=== PATIENT | female | born 1950 | race Caucasian/White ===

== ENCOUNTER 2023-06-04 09:41 | Outpatient (AMB) | payer OTHER, SELFPAY ==
--- NOTE | 2023-06-04 11:28 | AM.OFFWIN_ITS ---
Intake Vital Signs 06/04/23 11:30 BP 100/70 Blood Pressure Location Lt brachial Position Sitting Pulse 98 Pulse Source Pulse Oximeter Temp 98.1 F Temp Source Oral Pulse Oximetry (%) 96 Oxygen Delivery Method Room Air Intake Visit Reasons: EP Shingles DR. Jasmin winston ([facility]) Intake Note: Pt is here today c/o shingles on Rt side of face Allergies No Known Allergies Allergy (Verified 06/18/23 06:41) Medication List - Last Reconciled 06/18/23 by Erik José MD acetaminophen-codeine 300-30 mg 1 tab PO Q8H PRN amlodipine 10 mg PO DAILY atorvastatin 10 mg PO DAILY gabapentin (Neurontin) 300 mg PO TID latanoprost 0.005% 1 drp ophthalmic (eye) BEDTIME timolol maleate 0.5% drps ophthalmic (eye) valacyclovir 500 mg PO BID HPI EP Shingles DR. Jasmin winston ([facility]) HPI Details 73-year-old female presents to the office for a sick visit. Continues to have pain on the left side of her face. Lancinating pain which is unbearable at times. Tearing from the left eye. Physical Exam Vital Signs: Last Vital Signs Temp 98.1 F 06/04/23 11:30 Pulse 98 06/04/23 11:30 BP 100/70 06/04/23 11:30 Pulse Ox 96 06/04/23 11:30 Oxygen Delivery Method Room Air 06/04/23 11:30 Const General: cooperative and healthy appearing Nutritional Appearance: well nourished Orientation/consciousness: patient oriented x3 Limitations: no limitations HEENT Head: Yes normal to inspection Eyes General: appearance normal, both eyes and all related structures Neck Neck: Yes normal visual inspection Chest Chest palpation & inspection: normal palpation of entire chest wall Resp Effort & Inspection: normal respiratory effort Skin Other: No new herpetic lesions. Neuro General: patient oriented x3 Assessment & Plan Assessment & Plan (1) Herpes zoster: Code(s): B02.9 - Zoster without complications Plan: Unfortunately patient is having bad post herpetic neurology. Neurontin and Tylenol with codeine have been started. I have agreed to take or on as my primary care patient. She will be getting an appointment on in [place]. Medications: New acetaminophen-codeine 300-30 mg 1 tab PO Q8H PRN 30 tabs 0RF pain gabapentin (Neurontin) 300 mg PO TID 60 caps 0RF Discontinued gabapentin Discontinued Reason: Doctor's Order 100 mg PO BID 30 caps 0RF Coding Level of Care Code Est Pt Level 4 (10744) Diagnoses Herpes zoster B02.9
[2023-06-04 11:30] VITALS: BP 100/70; PULSE 98; TEMP 36.7; O2SAT 96
== END 2023-06-04 13:33 | disposition home or self-care (01) ==
PROVIDERS: Visit Provider Nurse Practitioner Family
DX: B02.9 Zoster without complications (principal)
CPT/HCPCS: 99214

== ENCOUNTER 2023-06-21 09:15 | Outpatient (AMB) | payer OTHER, SELFPAY ==
--- NOTE | 2023-06-21 09:29 | A.OFFPC_ITS ---
Vital Signs 06/21/23 09:32 Height 5 ft 1 in Weight 131 lb BMI 24.7 BP 120/68 Blood Pressure Location Lt brachial Position Sitting Pulse 74 Pulse Source Pulse Oximeter Pulse Oximetry (%) 97 Oxygen Delivery Method Room Air Intake Visit Reasons: Herpes on the lips f/u Intake Note: Patient is here to follow up on Herpes on the lips. Complaint of right face swelling and numbness. 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: Not Required per policy Accompanied by: Self / Same As Patient Allergies No Known Allergies Allergy (Verified 07/08/23 19:38) Medication List - Last Reconciled 07/08/23 by Erik José MD acetaminophen-codeine 300-30 mg 1 tab PO Q8H PRN amitriptyline 10 mg PO BEDTIME amlodipine 10 mg PO DAILY atorvastatin 10 mg PO DAILY gabapentin (Neurontin) 300 mg PO TID latanoprost 0.005% 1 drp ophthalmic (eye) BEDTIME timolol maleate 0.5% drps ophthalmic (eye) valacyclovir 500 mg PO BID Tobacco use date assessed: 06/21/23 Fall risk assessment: No Falls in past year Last assessed Fall Risk: 06/21/23 Dental Screening Dental Screen Date: 06/21/23 Did you have a dental visit in the last 12 months?: No Did you have a dental problem in the last 6 months where you did not have access to dental care?: No Was dental information given to patient?: No HPI Herpes on the lips f/u HPI Details 73 yr old female presents to the office to establish her care here. She was seen at the walk in with herpes zoster and she wanted to establish her care. Pt unfortunately has developed post herpetic neuralgia. Pt continues to have pain in the face. Difficulty sleeping at night. Medications prescribed are not helping. [facility] Surgical History (Updated 06/21/23 @ 09:45 by IRVIN Gomez) No pertinent past surgical history Social History (Updated 06/21/23 @ 09:46 by IRVIN Gomez) Housing: House Alcohol intake: current Alcohol intake frequency: a few times a month Alcohol type: wine Patient Tobacco Use Status: Never used Tobacco e-Cigarette/Vaping Use: Never Used Second Hand Smoke Exposure: No service: No Current occupational status: retired Cognitive needs: No Hearing needs: No Vision needs: Yes (glasses) Questionnaire PHQ-9 Over the last 2 weeks, how often have you been bothered by any of the following problems? 1. Little interest or pleasure in doing things: not at all 2. Feeling down, depressed, or hopeless: not at all 3. Trouble falling or staying asleep, or sleeping too much: not at all 4. Feeling tired or having little energy: not at all 5. Poor appetite or overeating: not at all 6. Feeling bad about yourself - or that you are a failure or have let yourself or your family down: not at all 7. Trouble concentrating on things, such as reading the newspaper or watching television: not at all 8. Moving or speaking so slowly that other people could have noticed. Or the opposite - being so fidgety or restless that you have been moving around a lot more than usual: not at all 9. Thoughts that you would be better off or of hurting yourself in some way: not at all Total score: 0 Depression Screening Interpretation: Negative Source: Developed by Drs. Eyal Parrish, Sydni Goodwin, Edmond Aguilar and colleagues, with an educational camila from [employer]. Thrive Questionnaire Date Thrive assessed: 06/21/23 I am a: Patient What is your living situation today?: I have a steady place to live Within the past 12 months, did the food you bought not last and you didn't have the money to get more?: Never true Within the past 12 months, did you worry whether your food would run out before you got money to buy more?: Never true Do you have trouble paying for medicines?: No Do you have trouble getting transportation to medical appointments?: No Do you have trouble paying your heating and electricity bill?: No Do you have trouble taking care of your child, family member or friend?: No Do you have trouble with day-to-day activities such as bathing, preparing meals, shopping, managing finances, etc.?: No Are you currently unemployed and looking for a job?: No Are you interested in more education?: No Currently or been in a relationship where the following occur: no concerns reported AUDIT C Alcohol Use Questionnaire (AUDIT-C) 1. How often do you have a drink containing alcohol?: Never Total Score: 0 CLINTON-7 AMB Questionnaire CLINTON-7 Date CLINTON - 7 assessed: 06/21/23 Feeling nervous, anxious, or on edge: 1 = Several days Not being able to stop or control worryin = Not at all Worrying too much about different things: 0 = Not at all Trouble relaxin = Not at all Being so restless that it is hard to sit still: 0 = Not at all Becoming easily annoyed or irritable: 0 = Not at all Feeling afraid as if something awful might happen: 0 = Not at all Total CLINTON-7 score (0-4 normal; 5-9 mild; 10-14 moderate; 15-21 severe): 1 Source: Developed by Drs. Eyal Parrish, Sydni Goodwin, Edmond Aguilar and colleagues, with an educational camila from [employer]. Physical exam (Primary Care) Vital Signs: Last Vital Signs Pulse 74 06/21/23 09:32 BP 120/68 06/21/23 09:32 Pulse Ox 97 06/21/23 09:32 Oxygen Delivery Method Room Air 06/21/23 09:32 BMI result Body Mass Index 24.7 Tobacco/Smoking Status: Tobacco use Status Tobacco use date assessed 06/21/23 06/21/23 09:47 Patient Tobacco Use Status Never used Tobacco 06/21/23 09:47 e-Cigarette/Vaping Use Never Used 06/21/23 09:47 PHQ-9: PHQ-9 Score PHQ-9: Total score 0 07/08/23 19:44 Depression Screening Interpretation: Negative Thrive Assessment: Date of Thrive Assessment Date Thrive assessed 06/21/23 06/21/23 09:47 Currently or been in a relationship where the following occur: no concerns reported Const General: cooperative, healthy appearing and comfortable HENMT Head: Yes normal to inspection and Yes atraumatic Eyes General: appearance normal, both eyes and all related structures Neck Neck: Yes normal visual inspection and Yes full ROM Chest Chest palpation & inspection: normal inspection of the chest Resp Effort & Inspection: normal respiratory effort Auscultation: clear to auscultation bilaterally Cardio Jugular venous distension: no JVD Palpation: normal PMI Rate: regular rate Heart sounds: S1 normal heart sound present and S2 normal heart sound present GI Palpation (GI): Soft to palpation and No hepatosplenomegaly present Skin Other: Face: Fading erythematous lesions on the left side of the face. Extrem General: Yes normal to inspection and Yes full ROM Assessment and Plan Assessment & Plan (1) Herpes zoster: Code(s): B02.9 - Zoster without complications Plan: Patient unfortunately has post herpetic neuralgia. Amitriptyline added to the regimen. Patient was advised to continue the Tylenol with codeine. Follow-up appointment in a month. Medications: New amitriptyline 10 mg PO BEDTIME 30 tabs 0RF Refilled acetaminophen-codeine 300-30 mg 1 tab PO Q8H PRN 30 tabs 0RF pain Coding Level of Care Code Est Pt Level 3 (54694) Diagnoses Herpes zoster B02.9
[2023-06-21 09:32] VITALS: BP 120/68; PULSE 74; O2SAT 97; BMI 24.7
== END 2023-06-21 10:20 | disposition home or self-care (01) ==
PROVIDERS: Visit Provider Internal Medicine
DX: B02.9 Zoster without complications (principal)
CPT/HCPCS: 99213

== ENCOUNTER 2023-09-20 07:44 | Outpatient (AMB) | payer OTHER, SELFPAY ==
[2023-09-20 07:48] VITALS: BP 118/72; PULSE 74; O2SAT 97; BMI 24.0
--- NOTE | 2023-09-20 07:48 | A.OFFPC_ITS ---
Vital Signs 09/20/23 07:48 Height 5 ft 1 in Weight 127 lb BMI 24.0 BP 118/72 Blood Pressure Location Lt brachial Position Sitting Pulse 74 Pulse Source Pulse Oximeter Pulse Oximetry (%) 97 Oxygen Delivery Method Room Air Intake Visit Reasons: Shingles f/u Allergies No Known Allergies Allergy (Verified 09/20/23 08:21) Medication List - Last Reconciled 09/20/23 by Erik José MD acetaminophen-codeine 300-30 mg 1 tab PO Q8H PRN amitriptyline 10 mg PO BEDTIME amlodipine 10 mg PO DAILY atorvastatin 10 mg PO DAILY gabapentin (Neurontin) 300 mg PO TID latanoprost 0.005% 1 drp ophthalmic (eye) BEDTIME timolol maleate 0.5% drps ophthalmic (eye) valacyclovir 500 mg PO BID Tobacco use date assessed: 06/21/23 Fall risk assessment: No Falls in past year Last assessed Fall Risk: 09/20/23 Dental Screening Dental Screen Date: 09/20/23 Did you have a dental visit in the last 12 months?: No Did you have a dental problem in the last 6 months where you did not have access to dental care?: No Was dental information given to patient?: No HPI Shingles f/u HPI Details 73-year-old female presents to the offic e for a discussion on her chronic medical conditions. Patient continues to have pain and numbness on the right side of the face. She has discontinued the amitriptyline. She is taking the Neurontin twice a day. The numbness is on the right side of the face extending into the nose. Able to chew with no difficulty. Occasional burning sensation. She has to cut the food into small pieces and push it to the left side to taste the food or enjoy the food. There is no drooling. Patient is also complaining increased sensitivity to cold. She is having hair loss. Able to function and do all activities of daily living. [facility] Medical History (Updated 09/20/23 @ 08:25 by Erik José MD) Post herpetic neuralgia Surgical History (Updated 06/21/23 @ 09:45 by IRVIN Gomez) No pertinent past surgical history Social History (Updated 06/21/23 @ 09:46 by IRVIN Gomez) Housing: House Alcohol intake: current Alcohol intake frequency: a few times a month Alcohol type: wine Patient Tobacco Use Status: Never used Tobacco e-Cigarette/Vaping Use: Never Used Second Hand Smoke Exposure: No service: No Current occupational status: retired Cognitive needs: No Hearing needs: No Vision needs: Yes (glasses) Questionnaire PHQ-9 Over the last 2 weeks, how often have you been bothered by any of the following problems? 1. Little interest or pleasure in doing things: not at all 2. Feeling down, depressed, or hopeless: not at all 3. Trouble falling or staying asleep, or sleeping too much: not at all 4. Feeling tired or having little energy: not at all 5. Poor appetite or overeating: not at all 6. Feeling bad about yourself - or that you are a failure or have let yourself or your family down: not at all 7. Trouble concentrating on things, such as reading the newspaper or watching television: not at all 8. Moving or speaking so slowly that other people could have noticed. Or the opposite - being so fidgety or restless that you have been moving around a lot more than usual: not at all 9. Thoughts that you would be better off or of hurting yourself in some wa y: not at all Total score: 0 Depression Screening Interpretation: Negative Depression Screening Done: Yes Source: Developed by Drs. Eyal Parrish, Edmond Lopez and colleagues, with an educational camila from [employer]. Thrive Questionnaire Date Thrive assessed: 06/21/23 Currently or been in a relationship where the following occur: no concerns reported AUDIT C Alcohol Use Questionnaire (AUDIT-C) 1. How often do you have a drink containing alcohol?: Never Total Score: 0 CLINTON-7 AMB Questionnaire CLINTON-7 Date CLINTON - 7 assessed: 06/21/23 Source: Developed by Drs. Eyal Parrish, Edmond Lopez and colleagues, with an educational camila from [employer]. Physical exam (Primary Care) Vital Signs: Last Vital Signs Pulse 74 09/20/23 07:48 BP 118/72 09/20/23 07:48 Pulse Ox 97 09/20/23 07:48 Oxygen Delivery Method Room Air 09/20/23 07:48 Care Plan Goal for BP management: Blood pressure is in range. BMI result Body Mass Index 24.0 Tobacco/Smoking Status: Tobacco use Status Tobacco use date assessed 06/21/23 09/20/23 07:53 Patient Tobacco Use Status Never used Tobacco 09/20/23 07:53 e-Cigarette/Vaping Use Never Used 09/20/23 07:53 PHQ-9: PHQ-9 Score PHQ-9: Total score 0 09/20/23 07:53 Depression Screening Interpretation: Negative Thrive Assessment: Date of Thrive Assessment Date Thrive assessed 06/21/23 09/20/23 07:53 Currently or been in a relationship where the following occur: no concerns reported Advance Care Planning discussion: Exists, not on file Date of discussion: 09/20/23 Who was present: Patient Forms completed: Health Care Proxy Time spent: 1-15 minutes, not on file Actual minutes spent: 5 Const General: cooperative and healthy appearing Nutritional Appearance: well nourished Orientation/consciousness: patient oriented x3 Limitations: no limitations HENMT Head: Yes normal to inspection Eyes General: appearance normal, both eyes and all related structures Neck Neck: Yes normal visual inspection Chest Chest palpation & inspection: normal palpation of entire chest wall Resp Effort & Inspection: normal respiratory effort Neuro General: patient oriented x3 Assessment and Plan Assessment & Plan (1) Herpes zoster: Code(s): B02.9 - Zoster without complications (2) Post herpetic neuralgia: Code(s): B02.29 - Other postherpetic nervous system involvement Plan: Unfortunately patient continues to have post herpetic neuralgia. Continue the gabapentin at current dosage. (3) Fatigue: Code(s): R53.83 - Other fatigue Plan Blood work including thyroid function tests have been ordered. If symptoms do not improve to follow-up here. Orders: Orders Basic Metabolic Panel Today B02.9 - Zoster without complications Complete Blood Count no Diff Today B02.9 - Zoster without complications Lipid Panel Today B02.9 - Zoster without complications Erythrocyte Sedimentation Rate Today B02.9 - Zoster without complications Thyroid Stimulating Hormone Today B02.9 - Zoster without complications Liver Panel Today B02.9 - Zoster without complications MM screening mammo BI Today B02.9 - Zoster without complications, Z12.31 - Encounter for screening mammogram for malignant neoplasm of breast Coding Level of Care Code Est Pt Level 4 (49925) Diagnoses Herpes zoster B02.9 Post herpetic neuralgia B02.29 Fatigue R53.83 Additional Codes Vital Signs *Quality* - Advance Care Planning discussion: Exists, not on file ([id number]) Vital Signs *Quality* - Time spent: 1-15 minutes, not on file ([id number])
== END 2023-09-20 08:52 | disposition home or self-care (01) ==
PROVIDERS: Visit Provider Internal Medicine
DX: B02.9 Zoster without complications (principal); B02.29 Other postherpetic nervous system involvement; R53.83 Other fatigue; Z00.00 Encounter for general adult medical examination without abnormal findings
CPT/HCPCS: 1123F; 1124F; 99214

== ENCOUNTER 2023-09-20 08:54 | Outpatient (REF) | payer OTHER, SELFPAY ==
[2023-09-20 11:01] LABS: Hematocrit 42.3 % (37.0-47.0); Hemoglobin 13.8 g/dl (12.0-16.0); Mean Corpuscular HGB Conc 32.6 g/dl (31.0-35.0); Mean Corpuscular Hemoglobin 29.5 pg (27.0-33.0); Mean Corpuscular Volume 90.4 fL (80.0-98.0); Platelet Count 380 X10*3/uL (160-400); Red Blood Count 4.68 X10*6/uL (4.20-5.50); Red Cell Distribution Width 13.5 % (11.0-16.0); White Blood Count 7.2 X10*3/uL (4.8-10.8)
[2023-09-20 11:17] LABS: Alanine Aminotransferase 10 U/L (0-31); Albumin Level 4.3 g/dL (3.5-5.0); Alkaline Phosphatase 85 U/L (39-117); Anion Gap 11 (12-20); Aspartate Amino Transferase 13 U/L (5-31); Bilirubin Direct 0.2 mg/dL (0.0-0.5); Bilirubin Total 0.5 mg/dL (0.0-1.0); Blood Urea Nitrogen 8 mg/dL (9-16); Calcium 9.6 mg/dL (8.4-10.2); Carbon Dioxide 31 mmol/L (22-29); Chloride 104 mmol/L (96-108); Cholesterol 186 mg/dL (<200); Estimated Glomerular Filt Rate > 60; Glucose Random 92 mg/dL (60-115); HDL Cholesterol 70 mg/dL (>40); LDL Cholesterol Calculated 94 mg/dL (<100); Potassium 3.4 mmol/L (3.3-5.1); Sodium 143 mmol/L (135-145); Total Protein 7.7 g/dL (6.5-8.0); Triglycerides 112 mg/dL (<150)
[2023-09-20 11:39] LABS: Erythrocyte Sedimentation Rate 10 MM/HR (0-20)
[2023-09-20 11:47] LABS: Thyroid Stimulating Hormone 2.01 uIU/mL (0.32-4.0)
== END 2023-09-20 08:55 | disposition home or self-care (01) ==
LOC: HO.10HDL 08:54
PROVIDERS: Visit Provider Internal Medicine
DX: B02.9 Zoster without complications (principal); E78.00 Pure hypercholesterolemia, unspecified; E03.9 Hypothyroidism, unspecified
CPT/HCPCS: 36415; 80048; 80061; 80076; 84443; 85027; 85652

== ENCOUNTER 2023-12-27 08:43 | Outpatient (AMB) | payer OTHER, SELFPAY ==
--- NOTE | 2023-12-27 08:54 | MHC.PC.OV ---
Vital Signs 12/27/23 08:57 Height 5 ft 1 in Weight 132 lb BMI 24.9 BP 130/80 Blood Pressure Location Lt brachial Position Sitting Pulse 72 Pulse Source Pulse Oximeter Pulse Oximetry (%) 95 Oxygen Delivery Method Room Air Intake Visit Reasons: 6mth f/u Intake Note: Patient is here to follow up on medical issues. 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: No Composing Room Machinist: Not Required per policy Accompanied by: Self / Same As Patient Allergies No Known Allergies Allergy (Verified 12/27/23 09:30) Medication List - Last Reconciled 12/27/23 by Erik José MD amlodipine 10 mg PO DAILY atorvastatin 10 mg PO DAILY gabapentin (Neurontin) 300 mg PO TID latanoprost 0.005% 1 drp ophthalmic (eye) BEDTIME timolol maleate 0.5% drps ophthalmic (eye) Tobacco use date assessed: 12/27/23 Fall risk assessment: No Falls in past year Last assessed Fall Risk: 12/27/23 Dental Screening Dental Screen Date: 12/27/23 Did you have a dental visit in the last 12 months?: No Did you have a dental problem in the last 6 months where you did not have access to dental care?: No Was dental information given to patient?: No HPI 6mth f/u HPI Details 73-year-old female presents to the office to discuss her chronic medical conditions. Patient continues to have post herpetic neuralgia. Symptoms are well controlled with gabapentin. However when she does not take the medicine she starts experiencing burning sensation, swelling near the nose. She has been taking the medicine for 7 months and is now frustrated that it has not improving. She is compliant with other medications including Lipitor and Norvasc. Patient is now ready to get a mammogram done. Able to function and do activities of daily living. Patient today wishes to discuss her panic attacks. She only gets them when she has in a passenger seat of a car or when she gets an a bus or train. This has developed in the past 10 years. Patient used to travel overseas and across borders, but now unable to do so due to this condition. She would taken Prozac for this condition for a year and there was no improvement. She would also seen a therapist with no improvement. [facility] Medical History (Updated 12/27/23 @ 09:34 by Erik José MD) Panic attacks Hypercholesterolemia Essential hypertension Post herpetic neuralgia Surgical History No pertinent past surgical history Social History Housing: House Alcohol intake: current Alcohol intake frequency: a few times a month Alcohol type: wine Patient Tobacco Use Status: Never used Tobacco e-Cigarette/Vaping Use: Never Used Second Hand Smoke Exposure: No service: No Current occupational status: retired Cognitive needs: No Hearing needs: No Vision needs: Yes (glasses) Questionnaire PHQ-9 Over the last 2 weeks, how often have you been bothered by any of the following problems? 1. Little interest or pleasure in doing things: not at all 2. Feeling down, depressed, or hopeless: not at all 3. Trouble falling or staying asleep, or sleeping too much: not at all 4. Feeling tired or having little energy: not at all 5. Poor appetite or overeating: not at all 6. Feeling bad about yourself - or that you are a failure or have let yourself or your family down: not at all 7. Trouble concentrating on things, such as reading the newspaper or watching television: not at all 8. Moving or speaking so slowly that other people could have noticed. Or the opposite - being so fidgety or restless that you have been moving around a lot more than usual: not at all 9. Thoughts that you would be better off or of hurting yourself in some way: not at all Total score: 0 Depression Screening Interpretation: Negative Depression Screening Done: Yes Source: Developed by Drs. Eyal Parrish, Sydni Goodwin, Edmond Aguilar and colleagues, with an educational camila from [employer]. Thrive Questionnaire Date Thrive assessed: 12/27/23 I am a: Patient What is your living situation today?: I have a steady place to live Within the past 12 months, did the food you bought not last and you didn't have the money to get more?: Never true Within the past 12 months, did you worry whether your food would run out before you got money to buy more?: Never true Do you have trouble paying for medicines?: No Do you have trouble getting transportation to medical appointments?: No Do you have trouble paying your heating and electricity bill?: No Do you have trouble taking care of your child, family member or friend?: No Do you have trouble with day-to-day activities such as bathing, preparing meals, shopping, managing finances, etc.?: No Are you currently unemployed and looking for a job?: No Are you interested in more education?: No Currently or been in a relationship where the following occur: no concerns reported THRIVE Score: 0 AUDIT C Alcohol Use Questionnaire (AUDIT-C) 1. How often do you have a drink containing alcohol?: 2-4 times a month Total Score: 2 CLINTON-7 AMB Questionnaire CLINTON-7 Date CLINTON - 7 assessed: 06/21/23 Feeling nervous, anxious, or on edge: 0 = Not at all Not being able to stop or control worryin = Not at all Worrying too much about different things: 0 = Not at all Trouble relaxin = Not at all Being so restless that it is hard to sit still: 0 = Not at all Becoming easily annoyed or irritable: 0 = Not at all Feeling afraid as if something awful might happen: 0 = Not at all Total CLINTON-7 score (0-4 normal; 5-9 mild; 10-14 moderate; 15-21 severe): 0 Source: Developed by Drs. Eyal Parrish, Sydni Goodwin, Edmond Aguilar and colleagues, with an educational camila from [employer]. Physical exam (Primary Care) Vital Signs: Last Vital Signs Pulse 72 12/27/23 08:57 BP 130/80 12/27/23 08:57 Pulse Ox 95 12/27/23 08:57 Oxygen Delivery Method Room Air 12/27/23 08:57 Care Plan Goal for BP management: Blood pressure is in range. Continue current medications. BMI result Body Mass Index 24.9 Tobacco/Smoking Status: Tobacco use Status Tobacco use date assessed 12/27/23 12/27/23 09:06 Patient Tobacco Use Status Never used Tobacco 12/27/23 09:06 e-Cigarette/Vaping Use Never Used 12/27/23 09:06 PHQ-9: PHQ-9 Score PHQ-9: Total score 0 12/27/23 09:06 Depression Screening Interpretation: Negative Thrive Assessment: Date of Thrive Assessment Date Thrive assessed 12/27/23 12/27/23 09:06 Currently or been in a relationship where the following occur: no concerns reported Advance Care Planning discussion: Exists, not on file Date of discussion: 12/27/23 Who was present: Patient Forms completed: Health Care Proxy Time spent: 1-15 minutes, not on file Actual minutes spent: 5 Const General: cooperative and healthy appearing Nutritional Appearance: well nourished Orientation/consciousness: patient oriented x3 Limitations: no limitations HENMT Head: Yes normal to inspection Eyes General: appearance normal, both eyes and all related structures Neck Neck: Yes normal visual inspection Chest Chest palpation & inspection: normal palpation of entire chest wall Resp Effort & Inspection: normal respiratory effort Neuro General: patient oriented x3 Assessment and Plan Assessment & Plan (1) Hypercholesterolemia: Code(s): E78.00 - Pure hypercholesterolemia, unspecified Plan: LDL is in range. Continue Lipitor at same dosage. (2) Essential hypertension: Code(s): I10 - Essential (primary) hypertension Plan: Blood pressure is in range. Continue medications at same dosage. (3) Post herpetic neuralgia: Code(s): B02.29 - Other postherpetic nervous system involvement Plan: Condition is frustrating the patient. However she gets very good relief in Neurontin. I advised her to continue the medication indefinitely for now. (4) Panic attacks: Code(s): F41.0 - Panic disorder [episodic paroxysmal anxiety] Plan: 15 minutes spent counseling the patient. She continues to decline therapy. I gave her a few suggestions on how to overcome her fear and panic. Coding Level of Care Code Est Pt Level 4 (87696) Diagnoses Hypercholesterolemia E78.00 Essential hypertension I10 Post herpetic neuralgia B02.29 Panic attacks F41.0 Additional Codes Vital Signs *Quality* - Advance Care Planning discussion: Exists, not on file ([id number]) Vital Signs *Quality* - Time spent: 1-15 minutes, not on file ([id number])
[2023-12-27 08:57] VITALS: BP 130/80; PULSE 72; O2SAT 95; BMI 24.9
== END 2023-12-27 09:30 | disposition home or self-care (01) ==
PROVIDERS: PCP Internal Medicine; Visit Provider Internal Medicine
DX: E78.00 Pure hypercholesterolemia, unspecified (principal); I10 Essential (primary) hypertension; B02.29 Other postherpetic nervous system involvement; F41.0 Panic disorder [episodic paroxysmal anxiety]; Z00.00 Encounter for general adult medical examination without abnormal findings
CPT/HCPCS: 1123F; 1124F; 99214

== ENCOUNTER 2024-01-31 08:47 | Outpatient (REF) | payer OTHER, SELFPAY ==
--- NOTE | ~2024-01-31 | MM_ITS ---
EXAMINATION: MM SCREENING DIGITAL BREAST TOMOSYNTHESIS, BILATERAL CLINICAL INFORMATION: Screening. Asymptomatic. The patient is status post bilateral breast reduction. COMPARISON: Mammography: This study is compared with prior exams dating back to 2019. TECHNIQUE: Digital breast tomosynthesis is performed in both the craniocaudal and mediolateral oblique views along with computer-aided detection (CAD). Synthesized 2D images are generated from the tomosynthesis. FINDINGS: There are scattered areas of fibroglandular density (ACR BI-RADS breast composition Category b). There is an asymmetry in the superior aspect of the left breast. This may be related to prior breast reduction however, additional mammographic imaging of this finding is advised. In the right breast, there are no significant masses, abnormal calcifications, or other abnormalities. There are post reduction changes in each breast. There is a tissue marker present in the upper outer quadrant of the right breast from prior benign percutaneous biopsy. There are few, bilateral, benign calcifications. MM/MM tomosynthesis screening BI IMPRESSION: Asymmetry of the left breast warrants additional mammographic imaging. Bilateral post reduction and other benign findings. ASSESSMENT: BI-RADS BI-RADS 0 - Incomplete: Needs additional Imaging. RECOMMENDATION: 1. Additional views of the left breast 2. Targeted ultrasound if warranted after review of the additional views. 3. Radiology department staff will contact the patient for additional imaging. Additional Imaging required This examination should not preclude the clinical evaluation of a suspicious palpable abnormality. This patient's information was entered into a reminder system with a target due date for their next mammogram.
== END 2024-01-31 08:48 | disposition home or self-care (01) ==
LOC: HO.MAMMO 08:47
PROVIDERS: PCP Internal Medicine; Visit Provider Internal Medicine
DX: Z12.31 Encounter for screening mammogram for malignant neoplasm of breast (principal)
CPT/HCPCS: 77063; 77067

== ENCOUNTER → 2024-01-31 09:15 | Outpatient (BNV) | payer OTHER, SELFPAY | PROVIDERS: PCP Internal Medicine; Visit Provider Radiology Diagnostic Radiology | DX: Z12.31 Encounter for screening mammogram for malignant neoplasm of breast (principal) | CPT/HCPCS: 77063; 77067 ==

== ENCOUNTER 2024-03-28 10:38 | Outpatient (REF) | payer OTHER, SELFPAY ==
--- NOTE | ~2024-03-28 | MM_ITS ---
EXAMINATION: MM DIAGNOSTIC DIGITAL BREAST TOMOSYNTHESIS, LEFT CLINICAL INFORMATION: Patient presents for additional mammographic imaging of the superiorly located left breast asymmetry noted on screening mammography from 01/31/2024. The patient has a history of bilateral breast reduction. COMPARISON: Mammography: This study is compared with prior breast imaging dating back to 2019. TECHNIQUE: Digital breast tomosynthesis is performed. 2D images are generated from the tomosynthesis. The following views are obtained: CC, MLO and lateral spot compression of the left breast and a full lateral view of the left breast are obtained. FINDINGS: There are scattered areas of fibroglandular density (ACR BI-RADS breast composition Category b). Additional mammographic imaging of the superior aspect of the left breast reveals no persistent underlying abnormality. There are postsurgical changes related to prior breast reduction. There are no mammographic signs of malignancy. MM/MM tomosynthesis added views L IMPRESSION: No mammographic signs of malignancy. Both reduction changes left breast. ASSESSMENT: BI-RADS BI-RADS 2 - Benign Findings RECOMMENDATION: 1 year F/U Results were provided to the patient at time of visit by the technologist. This patient's information was entered into a reminder system with a target due date for their next mammogram.
== END 2024-03-28 10:39 | disposition home or self-care (01) ==
LOC: HO.MAMMO 10:38
PROVIDERS: PCP Internal Medicine; Visit Provider Internal Medicine
DX: N64.89 Other specified disorders of breast (principal)
CPT/HCPCS: 77061; 77065

== ENCOUNTER → 2024-03-28 11:00 | Outpatient (BNV) | payer OTHER, SELFPAY | PROVIDERS: PCP Internal Medicine; Visit Provider Radiology Diagnostic Radiology | DX: R92.8 Other abnormal and inconclusive findings on diagnostic imaging of breast (principal) | CPT/HCPCS: 77061; 77065; G0279 ==

== ENCOUNTER 2024-06-26 08:49 | Outpatient (AMB) | payer OTHER, SELFPAY ==
[2024-06-26 08:56] VITALS: BP 116/74; PULSE 76; O2SAT 98; BMI 25.5
--- NOTE | 2024-06-26 08:56 | MHC.PC.OV ---
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: No Allergies No Known Allergies Allergy (Verified 06/26/24 09:41) Medication List - Last Reconciled 06/26/24 by Erik José MD amlodipine 10 mg PO DAILY atorvastatin 10 mg PO DAILY gabapentin (Neurontin) 300 mg PO TID latanoprost 0.005% 1 drp ophthalmic (eye) BEDTIME timolol maleate 0.5% drps ophthalmic (eye) Tobacco use date assessed: 12/27/23 Fall risk assessment: No Falls in past year Last assessed Fall Risk: 06/26/24 Dental Screening Dental Screen Date: 12/27/23 Did you have a dental visit in the last 12 months?: No Did you have a dental problem in the last 6 months where you did not have access to dental care?: No HPI 6mth f/u HPI Details 74-year-old female presents to the office to discuss her chronic medical conditions. Patient continues to have discomfort and altered touch sensation on the right side of the face. It has been more than a year since she suffered from herpes zoster in that area. Patient continues to take Neurontin. She is able to do all activities of daily living and able to function. Compliant with other medications 2. [facility] Medical History (Updated 12/27/23 @ 09:34 by Erik José MD) Panic attacks Hypercholesterolemia Essential hypertension Post herpetic neuralgia Surgical History No pertinent past surgical history Social History Housing: House Alcohol intake: current Alcohol intake frequency: a few times a month Alcohol type: wine Patient Tobacco Use Status: Never used Tobacco e-Cigarette/Vaping Use: Never Used Second Hand Smoke Exposure: No service: No Current occupational status: retired Cognitive needs: No Hearing needs: No Vision needs: Yes (glasses) Questionnaire PHQ-9 Over the last 2 weeks, how often have you been bothered by any of the following problems? 1. Little interest or pleasure in doing things: not at all 2. Feeling down, depressed, or hopeless: not at all 3. Trouble falling or staying asleep, or sleeping too much: not at all 4. Feeling tired or having little energy: not at all 5. Poor appetite or overeating: not at all 6. Feeling bad about yourself - or that you are a failure or have let yourself or your family down: not at all 7. Trouble concentrating on things, such as reading the newspaper or watching television: not at all 8. Moving or speaking so slowly that other people could have noticed. Or the opposite - being so fidgety or restless that you have been moving around a lot more than usual: not at all 9. Thoughts that you would be better off or of hurting yourself in some way: not at all Total score: 0 Depression Screening Interpretation: Negative Depression Screening Done: Yes 95041 - PHQ-9 Billing: Yes Source: Developed by Drs. Eyal Parrish, Sydni Goodwin, Edmond Aguilar and colleagues, with an educational camila from [employer]. Thrive Questionnaire Date Thrive assessed: 12/27/23 I am a: Patient What is your living situation today?: I have a steady place to live Within the past 12 months, did the food you bought not last and you didn't have the money to get more?: Never true Within the past 12 months, did you worry whether your food would run out before you got money to buy more?: Never true Do you have trouble paying for medicines?: No Do you have trouble getting transportation to medical appointments?: No Do you have trouble paying your heating and electricity bill?: No Do you have trouble taking care of your child, family member or friend?: No Do you have trouble with day-to-day activities such as bathing, preparing meals, shopping, managing finances, etc.?: No Are you currently unemployed and looking for a job?: No Are you interested in more education?: No Please select the resources that you would like help with: None Currently or been in a relationship where the following occur: No concerns reported THRIVE Score: 0 AUDIT C Alcohol Use Questionnaire (AUDIT-C) 1. How often do you have a drink containing alcohol?: 2-4 times a month 3. How often do you have six or more drinks on one occasion?: Never Total Score: 2 CLINTON-7 AMB Questionnaire CLINTON-7 Date CLINTON - 7 assessed: 06/26/24 Feeling nervous, anxious, or on edge: 0 = Not at all Not being able to stop or control worryin = Not at all Worrying too much about different things: 0 = Not at all Trouble relaxin = Not at all Being so restless that it is hard to sit still: 0 = Not at all Becoming easily annoyed or irritable: 0 = Not at all Feeling afraid as if something awful might happen: 0 = Not at all Total CLINTON-7 score (0-4 normal; 5-9 mild; 10-14 moderate; 15-21 severe): 0 Source: Developed by Drs. Eyal Parrish, Sydni Goodwin, Edmond Aguilar and colleagues, with an educational camila from [employer]. CLINTON-7 Assessment Billing CLINTON-7 Assessment Tool: CLINTON-7 Assessment 87875 Physical exam (Primary Care) Vital Signs: Last Vital Signs Pulse 76 06/26/24 08:56 BP 116/74 06/26/24 08:56 Pulse Ox 98 06/26/24 08:56 Oxygen Delivery Method Room Air 06/26/24 08:56 Care Plan Goal for BP management: Blood pressure is in range. Continue current medications. BMI result Body Mass Index 25.5 Tobacco/Smoking Status: Tobacco use Status Tobacco use date assessed 12/27/23 06/26/24 09:04 Patient Tobacco Use Status Never used Tobacco 06/26/24 09:04 e-Cigarette/Vaping Use Never Used 06/26/24 09:04 PHQ-9: PHQ-9 Score PHQ-9: Total score 0 06/26/24 09:04 Depression Screening Interpretation: Negative Thrive Assessment: Date of Thrive Assessment Date Thrive assessed 12/27/23 06/26/24 09:04 Currently or been in a relationship where the following occur: No concerns reported Const General: cooperative and healthy appearing Nutritional Appearance: well nourished Orientation/consciousness: patient oriented x3 Limitations: no limitations HENMT Head: Yes normal to inspection Eyes General: appearance normal, both eyes and all related structures Neck Neck: Yes normal visual inspection Chest Chest palpation & inspection: normal palpation of entire chest wall Resp Effort & Inspection: normal respiratory effort Neuro General: patient oriented x3 Assessment and Plan Assessment & Plan (1) Essential hypertension: Code(s): I10 - Essential (primary) hypertension Plan: Blood pressure is in range. Continue medications at same dosage. Counseling on the importance of diet and exercise done. Blood work has been ordered. Will call with the results of the blood test. (2) Post herpetic neuralgia: Code(s): B02.29 - Other postherpetic nervous system involvement Plan: Patient's quality of life is good. Continue Neurontin at the same dosage. (3) Hypercholesterolemia: Code(s): E78.00 - Pure hypercholesterolemia, unspecified Orders: Orders Complete Blood Count no Diff Today B02.29 - Other postherpetic nervous system involvement, E78.00 - Pure hypercholesterolemia, unspecified, I10 - Essential (primary) hypertension Erythrocyte Sedimentation Rate Today B02.29 - Other postherpetic nervous system involvement, E78.00 - Pure hypercholesterolemia, unspecified, I10 - Essential (primary) hypertension Lipid Panel Today B02.29 - Other postherpetic nervous system involvement, E78.00 - Pure hypercholesterolemia, unspecified, I10 - Essential (primary) hypertension Basic Metabolic Panel Today B02.29 - Other postherpetic nervous system involvement, E78.00 - Pure hypercholesterolemia, unspecified, I10 - Essential (primary) hypertension Liver Panel Today B02.29 - Other postherpetic nervous system involvement, E78.00 - Pure hypercholesterolemia, unspecified, I10 - Essential (primary) hypertension Thyroid Stimulating Hormone Today B02.29 - Other postherpetic nervous system involvement, E78.00 - Pure hypercholesterolemia, unspecified, I10 - Essential (primary) hypertension UA and rflx microscopic Today B02.29 - Other postherpetic nervous system involvement, E78.00 - Pure hypercholesterolemia, unspecified, I10 - Essential (primary) hypertension Coding Level of Care Code Est Pt Level 4 (39794) Complex EM visit Add On G2211 Diagnoses Essential hypertension I10 Post herpetic neuralgia B02.29 Hypercholesterolemia E78.00 Additional Codes CLINTON-7 Assessment Billing - CLINTON-7 Assessment Tool: CLINTON-7 Assessment 75070 ([id number])
== END 2024-06-26 09:37 | disposition home or self-care (01) ==
PROVIDERS: PCP Internal Medicine; Visit Provider Internal Medicine
DX: I10 Essential (primary) hypertension (principal); B02.29 Other postherpetic nervous system involvement; E78.00 Pure hypercholesterolemia, unspecified
CPT/HCPCS: 99214; G2211

== ENCOUNTER 2024-09-26 07:56 | Outpatient (REF) | payer OTHER, SELFPAY ==
[2024-09-26 10:09] LABS: Hematocrit 41.7 % (37.0-47.0); Hemoglobin 13.6 g/dl (12.0-16.0); Mean Corpuscular HGB Conc 32.6 g/dl (31.0-35.0); Mean Corpuscular Hemoglobin 29.3 pg (27.0-33.0); Mean Corpuscular Volume 89.9 fL (80.0-98.0); Mean Platelet Volume 9.1 fL (9.4-12.3); Platelet Count 409 X10*3/uL (160-400); Red Blood Count 4.64 X10*6/uL (4.20-5.50); Red Cell Distribution Width 14.1 % (11.0-16.0); White Blood Count 5.6 X10*3/uL (4.8-10.8)
[2024-09-26 10:15] LABS: Appearance Urine Clear; Color Urine Yellow; Glucose Urine UA Negative (Negative); Leukocyte Esterase Urine Trace (Negative); Nitrite Urine Negative (Negative); PH 6.5 (5.0-9.0); Specific Gravity - Urine 1.015 (1.005-1.025); UMIC TRIGGER UA YES; Urine Blood Negative (Negative); Urine Ketones Negative (Negative); Urine Protein Negative (Neg-Trace)
[2024-09-26 10:22] LABS: Bacteria Urine None Seen (None Seen); Hyaline Casts Urine 0-2 /LPF (0-2); RBC Urine 0-2 /HPF (0-2); Squamous Epithelial Cell Urine 0-2 /HPF (0-2); WBC Urine 0-5 /HPF (0-5)
[2024-09-26 10:53] LABS: Erythrocyte Sedimentation Rate 12 MM/HR (0-20)
[2024-09-26 10:56] LABS: Alanine Aminotransferase 12 U/L (0-31); Albumin Level 4.1 g/dL (3.5-5.0); Alkaline Phosphatase 91 U/L (39-117); Anion Gap 8 (12-20); Aspartate Amino Transferase 18 U/L (5-31); Bilirubin Direct 0.3 mg/dL (0.0-0.5); Bilirubin Total 0.8 mg/dL (0.0-1.0); Blood Urea Nitrogen 8 mg/dL (9-16); Calcium 9.1 mg/dL (8.4-10.2); Carbon Dioxide 30 mmol/L (22-29); Chloride 104 mmol/L (96-108); Cholesterol 173 mg/dL (<200); Estimated Glomerular Filt Rate > 60; Glucose Random 103 mg/dL (60-115); HDL Cholesterol 66 mg/dL (>40); LDL Cholesterol Calculated 89 mg/dL (<100); Potassium 3.4 mmol/L (3.3-5.1); Sodium 139 mmol/L (135-145); Thyroid Stimulating Hormone 2.32 uIU/mL (0.32-4.0); Total Protein 7.4 g/dL (6.5-8.0); Triglycerides 91 mg/dL (<150)
== END 2024-09-26 07:57 | disposition home or self-care (01) ==
LOC: HO.HMGCLDS 07:56
PROVIDERS: PCP Internal Medicine; Visit Provider Internal Medicine
DX: I10 Essential (primary) hypertension (principal); B02.29 Other postherpetic nervous system involvement; E78.00 Pure hypercholesterolemia, unspecified
CPT/HCPCS: 36415; 80048; 80061; 80076; 81001; 84443; 85027; 85652

== ENCOUNTER 2025-01-15 08:00 | Outpatient (AMB) | payer OTHER, SELFPAY ==
--- NOTE | 2025-01-15 08:12 | MHC.PC.OV ---
Vital Signs 01/15/25 08:14 Height 5 ft 1 in Weight 133 lb BMI 25.1 BP 120/72 Blood Pressure Location Lt brachial Position Sitting Pulse 71 Pulse Source Pulse Oximeter Temp 97.5 F Temp Source Temporal Artery Scan Pulse Oximetry (%) 97 Oxygen Delivery Method Room Air Intake Visit Reasons: 6mth f/u Intake Note: Patient is here to follow up on HTN, Hypercholesterolemia. Student Specialist Required: No Rehab Department Manager: Not Required per policy Accompanied by: Self / Same As Patient Allergies No Known Allergies Allergy (Verified 01/15/25 08:45) Medication List - Last Reconciled 01/15/25 by Erik José MD amlodipine 10 mg PO DAILY atorvastatin 10 mg PO DAILY gabapentin (Neurontin) 300 mg PO TID latanoprost 0.005% 1 drp ophthalmic (eye) BEDTIME timolol maleate 0.5% drps ophthalmic (eye) Tobacco use date assessed: 01/15/25 Fall risk assessment: No Falls in past year Last assessed Fall Risk: 01/15/25 Dental Screening Dental Screen Date: 01/15/25 Did you have a dental visit in the last 12 months?: Yes Did you have a dental problem in the last 6 months where you did not have access to dental care?: No Was dental information given to patient?: Patient has dentist [facility] Medical History Panic attacks Hypercholesterolemia Essential hypertension Post herpetic neuralgia Surgical History History of colonoscopy with polypectomy (11/25/24) No pertinent past surgical history Social History Housing: House Alcohol intake: current Alcohol intake frequency: a few times a month Alcohol type: wine Patient Tobacco Use Status: Never used Tobacco e-Cigarette/Vaping Use: Never Used Second Hand Smoke Exposure: No service: No Current occupational status: retired Cognitive needs: No Hearing needs: No Vision needs: Yes (glasses) Questionnaire PHQ-9 Over the last 2 weeks, how often have you been bothered by any of the following problems? 1. Little interest or pleasure in doing things: not at all 2. Feeling down, depressed, or hopeless: not at all 3. Trouble falling or staying asleep, or sleeping too much: not at all 4. Feeling tired or having little energy: not at all 5. Poor appetite or overeating: not at all 6. Feeling bad about yourself - or that you are a failure or have let yourself or your family down: not at all 7. Trouble concentrating on things, such as reading the newspaper or watching television: not at all 8. Moving or speaking so slowly that other people could have noticed. Or the opposite - being so fidgety or restless that you have been moving around a lot more than usual: not at all 9. Thoughts that you would be better off or of hurting yourself in some way: not at all Total score: 0 Depression Screening Interpretation: Negative Depression Screening Done: Yes Source: Developed by Drs. Eyal Parrish, Sydni Goodwin, Edmond Aguilar and colleagues, with an educational camila from [employer]. Thrive Questionnaire Date Thrive assessed: 01/15/25 I am a: Patient What is your living situation today?: I have a steady place to live Within the past 12 months, did the food you bought not last and you didn't have the money to get more?: Never true Within the past 12 months, did you worry whether your food would run out before you got money to buy more?: Never true Do you have trouble paying for medicines?: No Do you have trouble getting transportation to medical appointments?: No Do you have trouble paying your heating and electricity bill?: No Do you have trouble taking care of your child, family member or friend?: No Do you have trouble with day-to-day activities such as bathing, preparing meals, shopping, managing finances, etc.?: No Are you currently unemployed and looking for a job?: No Are you interested in more education?: No Please select the resources that you would like help with: None Currently or been in a relationship where the following occur: No concerns reported THRIVE Score: 0 AUDIT C Alcohol Use Questionnaire (AUDIT-C) 1. How often do you have a drink containing alcohol?: 2-4 times a month 2. How many drinks containing alcohol do you have on a typical day when you are drinking?: 1 or 2 Total Score: 2 CLINTON-7 AMB Questionnaire CLINTON-7 Date CLINTON - 7 assessed: 01/15/25 Feeling nervous, anxious, or on edge: 0 = Not at all Not being able to stop or control worryin = Not at all Worrying too much about different things: 0 = Not at all Trouble relaxin = Not at all Being so restless that it is hard to sit still: 0 = Not at all Becoming easily annoyed or irritable: 0 = Not at all Feeling afraid as if something awful might happen: 0 = Not at all Total CLINTON-7 score (0-4 normal; 5-9 mild; 10-14 moderate; 15-21 severe): 0 Source: Developed by Drs. Eyal Parrish, Sydni Goodwin, Edmond Aguilar and colleagues, with an educational camila from [employer]. Physical exam (Primary Care) Vital Signs: Last Vital Signs Temp 97.5 F 01/15/25 08:14 Pulse 71 01/15/25 08:14 BP 120/72 01/15/25 08:14 Pulse Ox 97 01/15/25 08:14 Oxygen Delivery Method Room Air 01/15/25 08:14 BMI result Body Mass Index 25.1 Tobacco/Smoking Status: Tobacco use Status Tobacco use date assessed 01/15/25 01/15/25 08:18 Patient Tobacco Use Status Never used Tobacco 01/15/25 08:18 e-Cigarette/Vaping Use Never Used 01/15/25 08:18 PHQ-9: PHQ-9 Score PHQ-9: Total score 0 01/15/25 08:18 Depression Screening Interpretation: Negative Thrive Assessment: Date of Thrive Assessment Date Thrive assessed 01/15/25 01/15/25 08:18 Currently or been in a relationship where the following occur: No concerns reported Coding Level of Care Code Est Pt Level 4 (16719) Complex EM visit Add On G2211 Diagnoses Panic attacks F41.0 Essential hypertension I10 Hypercholesterolemia E78.00 Post herpetic neuralgia B02.29 Assessment & Plan Assessment & Plan (1) Panic attacks: Code(s): F41.0 - Panic disorder [episodic paroxysmal anxiety] Category: Medical Plan: Currently condition is stable (2) Essential hypertension: Code(s): I10 - Essential (primary) hypertension Category: Medical Plan: BP in range. Continue meds at same dosage. BW done in September is in range. (3) Hypercholesterolemia: Code(s): E78.00 - Pure hypercholesterolemia, unspecified Category: Medical Plan: BW in range (4) Post herpetic neuralgia: Code(s): B02.29 - Other postherpetic nervous system involvement Category: Medical Plan: Continue Neurontin Plan History of Present Illness The patient is a 74-year-old female presenting with concerns regarding Postherpetic Neuralgia and the ongoing management of Hypertension. She experiences persistent face numbness with occasional pain localized to her lips and nose, having used gabapentin in response to symptoms persisting. Additional potential treatments, such as duloxetine, were discussed with recognition of side effects.? Unknown to me, patient was taking Amlodipine 10 mg and Lipitor 10 mg a day for HTN and Elevated Cholesterol. Social History - The patient lives in [place], [place]. - She was assigned a new primary care provider after the departure of her previous physician but did not see them. - She expresses support for her friend undergoing chemotherapy and plans social activities accordingly. Review of Systems Neurological: Reports persistent facial numbness and pain in the lip and nose area. Vaccination: Denies receipt of shingles vaccine. Physical Exam General: Appearance normal, both eyes and all related structures Nutritional Appearance: Well nourished Orientation/consciousness: Patient oriented x3 Limitations: No limitations Head: Normal to inspection Neck: Normal visual inspection Chest: Normal palpation of entire chest wall Respiratory: Normal respiratory effort Neurology: Patient oriented x3, reports numbness and occasional pain in the face, affecting the lip and nose. Results - Labs: September blood work, results unspecified but noted as normal. Plan The management of Postherpetic Neuralgia emphasizes gabapentin, with discussed alternatives like duloxetine, though it was deemed unsuitable at present due to side effects. The patient will coordinate Hypertension medication refills through my office to enhance oversight. The vaccination status was reviewed, with the patient expressing hesitation about receiving the shingles vaccine. Laboratory assessments were previously normal, thus recent tests are deemed unnecessary. Patient was informed and verbally consented to the use of an ambient scribe for clinic note documentation during this visit. Discussion Notes I discussed with the patient her continued symptoms of Postherpetic Neuralgia; we explored treatment options, particularly emphasizing current gabapentin use to alleviate symptoms despite persistence and its impacts. Duloxetine was noted but sidelined due to significant side effects. We talked about her Hypertension, transitioning her Norvast prescription to be managed by my practice to prevent automatic refills unnoticed. I acknowledged her concerns about vaccine rigor influencing her decision against receiving the shingles vaccine, explaining potential benefits. The patient will follow up in six months in the [place] office or earlier if needed for prescription adjustments. Patient Instructions - Continue taking gabapentin as prescribed for Postherpetic Neuralgia. - Contact the office for prescription refills to avoid automated renewals. - Monitor symptoms; report any significant changes or concerning issues. - Consider health wellness reviews and vaccination discussions as knowledgeable options. - Keep appointments for scheduled follow-ups for condition monitoring.
[2025-01-15 08:14] VITALS: BP 120/72; PULSE 71; TEMP 36.4; O2SAT 97; BMI 25.1
== END 2025-01-15 09:56 | disposition home or self-care (01) ==
PROVIDERS: PCP Internal Medicine; Visit Provider Internal Medicine
DX: F41.0 Panic disorder [episodic paroxysmal anxiety] (principal); I10 Essential (primary) hypertension; E78.00 Pure hypercholesterolemia, unspecified; B02.29 Other postherpetic nervous system involvement

== ENCOUNTER 2025-09-07 15:29 | Outpatient (AMB) | payer OTHER, SELFPAY ==
[2025-09-07 15:38] VITALS: BP 122/80; PULSE 90; RESP 14; TEMP 36.4; O2SAT 95; BMI 25.1
--- NOTE | 2025-09-07 15:38 | A.OFFPC_ITS ---
Vital Signs 09/07/25 15:38 Height 5 ft 1 in Weight 133 lb BMI 25.1 BP 122/80 Respiration 14 Pulse 90 Pulse Source Pulse Oximeter Temp 97.6 F Temp Source Temporal Artery Scan Pulse Oximetry (%) 95 Oxygen Delivery Method Room Air Intake Visit Reasons: Follow up Technical Services Coordinator Required: No Accompanied by: Self / Same As Patient Allergies No Known Allergies Allergy (Verified 09/07/25 15:39) Tobacco use date assessed: 01/15/25 Dental Screening Dental Screen Date: 01/15/25 [facility] Medical History Panic attacks Hypercholesterolemia Essential hypertension Post herpetic neuralgia Surgical History History of colonoscopy with polypectomy (11/25/24) No pertinent past surgical history Social History Housing: House Alcohol intake: current Alcohol intake frequency: a few times a month Alcohol type: wine Patient Tobacco Use Status: Never used Tobacco e-Cigarette/Vaping Use: Never Used Second Hand Smoke Exposure: No service: No Current occupational status: retired Cognitive needs: No Hearing needs: No Vision needs: Yes (glasses) Questionnaire PHQ-9 Over the last 2 weeks, how often have you been bothered by any of the following problems? 1. Little interest or pleasure in doing things: not at all 2. Feeling down, depressed, or hopeless: not at all 3. Trouble falling or staying asleep, or sleeping too much: not at all 4. Feeling tired or having little energy: not at all 5. Poor appetite or overeating: not at all 6. Feeling bad about yourself - or that you are a failure or have let yourself or your family down: not at all 7. Trouble concentrating on things, such as reading the newspaper or watching television: not at all 8. Moving or speaking so slowly that other people could have noticed. Or the opposite - being so fidgety or restless that you have been moving around a lot more than usual: not at all 9. Thoughts that you would be better off or of hurting yourself in some way: not at all Total score: 0 Depression Screening Interpretation: Negative Depression Screening Done: Yes Source: Developed by Drs. Eyal Parrish, Sydni Goodwin, Edmond Aguilar and colleagues, with an educational camila from [employer]. Thrive Questionnaire Date Thrive assessed: 01/15/25 I am a: Patient What is your living situation today?: I have a steady place to live Within the past 12 months, did the food you bought not last and you didn't have the money to get more?: Never true Within the past 12 months, did you worry whether your food would run out before you got money to buy more?: Never true Do you have trouble paying for medicines?: No Do you have trouble getting transportation to medical appointments?: No Do you have trouble paying your heating and electricity bill?: No Do you have trouble taking care of your child, family member or friend?: No Do you have trouble with day-to-day activities such as bathing, preparing meals, shopping, managing finances, etc.?: No Are you currently unemployed and looking for a job?: No Are you interested in more education?: No Please select the resources that you would like help with: None Currently or been in a relationship where the following occur: No concerns reported THRIVE Score: 0 AUDIT C Alcohol Use Questionnaire (AUDIT-C) 1. How often do you have a drink containing alcohol?: 2-4 times a month 2. How many drinks containing alcohol do you have on a typical day when you are drinking?: 1 or 2 3. How often do you have six or more drinks on one occasion?: Never Total Score: 2 CLINTON-7 AMB Questionnaire CLINTON-7 Date CLINTON - 7 assessed: 01/15/25 Feeling nervous, anxious, or on edge: 0 = Not at all Not being able to stop or control worryin = Not at all Worrying too much about different things: 0 = Not at all Trouble relaxin = Not at all Being so restless that it is hard to sit still: 0 = Not at all Becoming easily annoyed or irritable: 0 = Not at all Feeling afraid as if something awful might happen: 0 = Not at all Total CLINTON-7 score (0-4 normal; 5-9 mild; 10-14 moderate; 15-21 severe): 0 Source: Developed by Sydni Murray.W. Buddy, Edmond Aguilar and colleagues, with an educational camila from [employer]. Physical exam (Primary Care) Vital Signs: Last Vital Signs Temp 97.6 F 09/07/25 15:38 Pulse 90 09/07/25 15:38 Resp 14 09/07/25 15:38 BP 122/80 09/07/25 15:38 Pulse Ox 95 09/07/25 15:38 Oxygen Delivery Method Room Air 09/07/25 15:38 BMI result Body Mass Index 25.1 Tobacco/Smoking Status: Tobacco use Status Tobacco use date assessed 01/15/25 09/07/25 15:44 Patient Tobacco Use Status Never used Tobacco 09/07/25 15:44 e-Cigarette/Vaping Use Never Used 09/07/25 15:44 PHQ-9: PHQ-9 Score PHQ-9: Total score 0 09/07/25 15:44 Depression Screening Interpretation: Negative Thrive Assessment: Date of Thrive Assessment Date Thrive assessed 01/15/25 09/07/25 15:44 Currently or been in a relationship where the following occur: No concerns reported Office Procedures Flu Questionnaire Does the patient have a severe egg allergy?: No Does the patient have severe life threatening allergies?: No Does the patient have a fever or illness today?: No Has the patient ever had Guillain-[place] Syndrome?: No Has the patient ever had any past reaction to a flu shot?: No Immunizations Fluarix [id number] (PF) 45 mcg (15 mcg x 3)/0.5 mL IM syringe Performing Provider: Erik José MD [facility] Documented (not given) by: IRVIN Gaona on 09/07/25 15:45 Reason Not Given: Patient Refused Coding Level of Care Code Est Pt Level 4 (57078) Complex EM visit Add On G2211 Diagnoses Essential hypertension I10 Hypercholesterolemia E78.00 Assessment & Plan Assessment & Plan (1) Essential hypertension: Code(s): I10 - Essential (primary) hypertension Category: Medical Plan: BP is stable. Continue current meds (2) Hypercholesterolemia: Code(s): E78.00 - Pure hypercholesterolemia, unspecified Category: Medical Plan: LDL in range Plan History of Present Illness - The patient is a 75-year-old female presenting with management of panic disorder and postherpetic neuralgia. - Panic disorder: The patient has a history of panic attacks, which have limited her ability to travel, particularly to [place], since the onset of COVID-19. - She recently managed to travel on a bus trip to [place] by taking Prozac and lorazepam, which effectively alleviated her anxiety during the trip. - Postherpetic neuralgia: The patient has been experiencing persistent pain in the area of her nose and lip for two years following shingles. - The pain is described as constant with occasional sharp episodes, and it has not improved with gabapentin, which she has been taking three times daily. - She has not experienced relief from other advertised treatments for nerve damage. - Glaucoma: The patient is managing her glaucoma with eye drops twice daily and has regular follow-ups every six months. - She is awaiting cataract surgery, which is expected to also address her glaucoma. - Hypertension and Hyperlipidemia: The patient is on amlodipine and atorvastatin for hypertension and hyperlipidemia, respectively. - Preventative care: Blood work is due as it has not been done since September of last year. Social History - The patient lives in an in-law apartment with her daughter, maintaining her own living space including a living room, kitchen, bedroom, and bathroom. - She drives herself despite experiencing panic attacks, indicating a level of independence. Review of Systems - Neurological: Reports persistent pain in the nose and lip area with occasional sharp episodes. Denies numbness. - Psychiatric: Reports history of panic attacks, managed with lorazepam and Prozac. Physical Exam General: Cooperative and healthy appearing Nutritional Appearance: Well nourished Orientation/consciousness: Patient oriented x3 Limitations: No limitations Head: Normal to inspection General: Appearance normal, both eyes and all related structures Neck: Normal visual inspection Chest: Normal palpation of entire chest wall Respiratory: N ormal respiratory effort Neurology: Patient oriented x3, reports constant pain in the lip and nose area with occasional sharp pain, likely due to nerve damage from shingles. Results Plan - Start amitriptyline for postherpetic neuralgia management. - Maintain current hypertension and hyperlipidemia medications, including amlodipine and atorvastatin. - Arrange for fasting blood work to update laboratory data. - Consider local infiltration for nerve pain management, noting it will not alter taste but may cause numbness. - Plan a follow-up visit in four weeks to evaluate the new treatment plan. Discussion Notes I discussed with the patient the initiation of amitriptyline for her postherpetic neuralgia and the continuation of her current medications for hypertension and hyperlipidemia. We talked about the need for fasting blood work to update her lab results. I also explained the option of local infiltration to manage her nerve pain, highlighting that it would not affect her taste but might cause some numbness. We agreed on a follow-up in four weeks to assess the effectiveness of these interventions. Patient Instructions - Start taking amitriptyline as prescribed for nerve pain. - Continue taking your blood pressure and cholesterol medications as directed. - Get fasting blood work done at [facility] to update your lab results. - Consider discussing local infiltration for nerve pain with your daughter. - Return for a follow-up appointment in four weeks. Orders: Orders Basic Metabolic Panel 09/07/25 E78.00 - Pure hypercholesterolemia, unspecified, I10 - Essential (primary) hypertension Liver Panel 09/07/25 E78.00 - Pure hypercholesterolemia, unspecified, I10 - Essential (primary) hypertension Lipid Panel 09/07/25 E78.00 - Pure hypercholesterolemia, unspecified, I10 - Essential (primary) hypertension Thyroid Stimulating Hormone 09/07/25 E78.00 - Pure hypercholesterolemia, unspecified, I10 - Essential (primary) hypertension UA and rflx microscopic 09/07/25 E78.00 - Pure hypercholesterolemia, unspecified, I10 - Essential (primary) hypertension Influenza [id number] Immunization 09/07/25 Z23 - Encounter for immunization Complete Blood Count no Diff 09/07/25 E78.00 - Pure hypercholesterolemia, unspecified, I10 - Essential (primary) hypertension Medications: New amitriptyline 25 mg PO BEDTIME 30 tabs 0RF atorvastatin 10 mg PO DAILY 90 tabs 1RF Refilled amlodipine 10 mg PO DAILY 90 tabs 1RF
== END 2025-09-07 16:10 | disposition home or self-care (01) ==
LOC: HO.HMCSH 15:29
PROVIDERS: PCP Internal Medicine; Visit Provider Internal Medicine
DX: I10 Essential (primary) hypertension (principal); E78.00 Pure hypercholesterolemia, unspecified

== ENCOUNTER → 2025-09-07 15:29 | Outpatient (BNVA) | payer OTHER, SELFPAY | PROVIDERS: PCP Internal Medicine; Visit Provider Internal Medicine | DX: I10 Essential (primary) hypertension (principal); E78.00 Pure hypercholesterolemia, unspecified; F41.0 Panic disorder [episodic paroxysmal anxiety]; B02.29 Other postherpetic nervous system involvement; Z28.21 Immunization not carried out because of patient refusal | CPT/HCPCS: 90471; 96127 ==

== ENCOUNTER 2025-09-14 10:39 | Outpatient (REF) | payer OTHER, SELFPAY ==
[2025-09-14 13:10] LABS: Hematocrit 43.1 % (37.0-47.0); Hemoglobin 13.7 g/dl (12.0-16.0); Mean Corpuscular HGB Conc 31.8 g/dl (31.0-35.0); Mean Corpuscular Hemoglobin 29.0 pg (27.0-33.0); Mean Corpuscular Volume 91.3 fL (80.0-98.0); NRBC Abs Auto 0.000 X10*3/uL (0.0-0.012); NRBC Pct Auto 0.0 /100WBC (0.0-0.2); Platelet Count 393 X10*3/uL (160-400); Red Blood Count 4.72 X10*6/uL (4.20-5.50); White Blood Count 6.6 X10*3/uL (4.8-10.8)
[2025-09-14 13:30] LABS: Appearance Urine Clear; Glucose Urine UA Negative (Negative); PH 7.0 (5.0-9.0); Specific Gravity - Urine 1.015 (1.005-1.025); UMIC TRIGGER UA YES
[2025-09-14 13:33] LABS: Alanine Aminotransferase 12 U/L (0-31); Albumin Level 4.4 g/dL (3.5-5.0); Alkaline Phosphatase 97 U/L (39-117); Anion Gap 8 (12-20); Aspartate Amino Transferase 21 U/L (5-31); Blood Urea Nitrogen 10 mg/dL (9-16); Calcium 9.2 mg/dL (8.4-10.2); Carbon Dioxide 30 mmol/L (22-29); Chloride 106 mmol/L (96-108); Cholesterol 190 mg/dL (<200); Estimated Glomerular Filt Rate > 60; HDL Cholesterol 67 mg/dL (>40); Potassium 3.4 mmol/L (3.3-5.1); Sodium 141 mmol/L (135-145); Total Protein 7.6 g/dL (6.5-8.0); Triglycerides 121 mg/dL (<150)
[2025-09-14 13:52] LABS: Thyroid Stimulating Hormone 2.57 uIU/mL (0.32-4.0)
== END 2025-09-14 10:40 | disposition home or self-care (01) ==
LOC: HO.HMGCLDS 10:39
PROVIDERS: PCP Internal Medicine; Visit Provider Internal Medicine
DX: I10 Essential (primary) hypertension (principal); E78.00 Pure hypercholesterolemia, unspecified
CPT/HCPCS: 36415; 80048; 80061; 80076; 81001; 81003; 84443; 85027

== ENCOUNTER 2025-10-12 08:07 | Outpatient (AMB) | payer OTHER, SELFPAY ==
--- NOTE | 2025-10-12 08:16 | A.OFFPC_ITS ---
Vital Signs 10/12/25 08:22 Height 5 ft 1 in Weight 133 lb 0.8 oz BMI 25.1 BP 137/62 Blood Pressure Location Rt brachial Pulse 73 Pulse Source Pulse Oximeter Temp 97.7 F Pulse Oximetry (%) 97 Intake Visit Reasons: 1 Month follow Intake Note: Pain on right side of face Allergies No Known Allergies Allergy (Verified 10/12/25 08:42) Medication List - Last Reconciled 10/12/25 by Erik José MD amitriptyline 25 mg PO BEDTIME amlodipine 10 mg PO DAILY atorvastatin 10 mg PO DAILY latanoprost 0.005% 1 drp ophthalmic (eye) BEDTIME timolol maleate 0.5% drps ophthalmic (eye) Tobacco use date assessed: 01/15/25 Dental Screening Dental Screen Date: 01/15/25 HPI HPI Comments History of Present Illness Details History of Present Illness - The patient is a 75 year old individua l presenting for follow-up and management of postherpetic neuralgia. - The condition has been present for ove r a year and affects the patient's upper lip and nose area. - The patient reports the discomfort is not severe and does not significantly affect day-to-day life. - Previous treatments include Neurontin for over a year and amitriptyline, neither of which provided much relief. - The patient has stopped the amitriptyl ine. - The patient reports having no arthriti s. - Recent blood work from September 14 wa s normal, showing no anemia, good kidney and liver functions, well-controlled cholesterol, and normal thyroid function. Social History - Exercise: The patient reports a sedent adrianna lifestyle, stating a desire to go to the chair and eat, watch TV. - The patient previously attended a band exercise class at a senior center but found it boring and stopped going. Results - Lab results from September 14 were rev iewed and noted to be normal, including kidney function, liver function, cholesterol, and thyroid levels. - Complete blood count: No anemia noted. [facility] Medical History Panic attacks Hypercholesterolemia Essential hypertension Post herpetic neuralgia Surgical History History of colonoscopy with polypectomy (11/25/24) No pertinent past surgical history Social History Housing: House Alcohol intake: current Alcohol intake frequency: a few times a month Alcohol type: wine Patient Tobacco Use Status: Never used Tobacco e-Cigarette/Vaping Use: Never Used Second Hand Smoke Exposure: No service: No Current occupational status: retired Cognitive needs: No Hearing needs: No Vision needs: Yes (glasses) Questionnaire PHQ-9 Over the last 2 weeks, how often have you been bothered by any of the following problems? 1. Little interest or pleasure in doing things: not at all 2. Feeling down, depressed, or hopeless: not at all 3. Trouble falling or staying asleep, or sleeping too much: not at all 4. Feeling tired or having little energy: not at all 5. Poor appetite or overeating: not at all 6. Feeling bad about yourself - or that you are a failure or have let yourself or your family down: not at all 7. Trouble concentrating on things, such as reading the newspaper or watching television: not at all 8. Moving or speaking so slowly that other people could have noticed. Or the opposite - being so fidgety or restless that you have been moving around a lot more than usual: not at all 9. Thoughts that you would be better off or of hurting yourself in some way: not at all Total score: 0 Depression Screening Interpretation: Negative Depression Screening Done: Yes Source: Developed by Drs. Eyal Parrish, Sydni Goodwin, Edmond Aguilar and colleagues, with an educational camila from [employer]. Thrive Questionnaire Date Thrive assessed: 01/15/25 I am a: Patient What is your living situation today?: I have a steady place to live Within the past 12 months, did the food you bought not last and you didn't have the money to get more?: Never true Within the past 12 months, did you worry whether your food would run out before you got money to buy more?: Never true Do you have trouble paying for medicines?: No Do you have trouble getting transportation to medical appointments?: No Do you have trouble paying your heating and electricity bill?: No Do you have trouble taking care of your child, family member or friend?: No Do you have trouble with day-to-day activities such as bathing, preparing meals, shopping, managing finances, etc.?: No Are you currently unemployed and looking for a job?: No Are you interested in more education?: No Please select the resources that you would like help with: None Currently or been in a relationship where the following occur: No concerns reported THRIVE Score: 0 AUDIT C Alcohol Use Questionnaire (AUDIT-C) 1. How often do you have a drink containing alcohol?: 2-4 times a month 2. How many drinks containing alcohol do you have on a typical day when you are drinking?: 1 or 2 3. How often do you have six or more drinks on one occasion?: Never Total Score: 2 CLINTON-7 AMB Questionnaire CLINTON-7 Date CLINTON - 7 assessed: 01/15/25 Feeling nervous, anxious, or on edge: 0 = Not at all Not being able to stop or control worryin = Not at all Worrying too much about different things: 0 = Not at all Trouble relaxin = Not at all Being so restless that it is hard to sit still: 0 = Not at all Becoming easily annoyed or irritable: 0 = Not at all Feeling afraid as if something awful might happen: 0 = Not at all Total CLINTON-7 score (0-4 normal; 5-9 mild; 10-14 moderate; 15-21 severe): 0 Source: Developed by Drs. Eyal Parrish, Sydni Goodwin, Edmond Aguilar and colleagues, with an educational camila from [employer]. Review of Systems Narrative Review of Systems - Neurological: Reports ongoing discomfort from postherpetic neuralgia affecting the upper lip and nose. - Musculoskeletal: Denies arthritis. - Constitutional: Denies significant impact on quality of life from neuralgia symptoms. Physical exam (Primary Care) Vital Signs: Last Vital Signs Temp 97.7 F 10/12/25 08:22 Pulse 73 10/12/25 08:22 BP 137/62 10/12/25 08:22 Pulse Ox 97 10/12/25 08:22 BMI result Body Mass Index 25.1 Tobacco/Smoking Status: Tobacco use Status Tobacco use date assessed 01/15/25 10/12/25 08:16 Patient Tobacco Use Status Never used Tobacco 10/12/25 08:16 e-Cigarette/Vaping Use Never Used 10/12/25 08:16 PHQ-9: PHQ-9 Score PHQ-9: Total score 0 10/12/25 08:26 Depression Screening Interpretation: Negative Thrive Assessment: Date of Thrive Assessment Date Thrive assessed 01/15/25 10/12/25 08:16 Currently or been in a relationship where the following occur: No concerns reported Narrative Physical Exam General: Cooperative and healthy appearing Nutritional Appearance: Well nourished Orientation/consciousness: Patient oriented x3 Limitations: No limitations Head: Normal to inspection General: Appearance normal, both eyes and all related structures Neck: Normal visual inspection Chest: Normal palpation of entire chest wall Respiratory: Normal respiratory effort Neurology: Patient oriented x3 Office Procedures Flu Questionnaire Does the patient have a severe egg allergy?: No Does the patient have severe life threatening allergies?: No Does the patient have a fever or illness today?: No Has the patient ever had Guillain-[place] Syndrome?: No Has the patient ever had any past reaction to a flu shot?: No Immunizations Fluarix [id number] (PF) 45 mcg (15 mcg x 3)/0.5 mL IM syringe Performing Provider: Erik José MD [facility] Documented (not given) by: Danyelle Burnette on 10/12/25 08:24 Dose Route Admin Location Dispensed Lot Number Expiration Date 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 - The patient will discontinue gabapentin (Neurontin) due to lack of efficacy and because the pain is not severe. - The patient has declined procedural options, such as a nerve block, at this time, as the patient does not want to risk numbness of the lip, and the current symptoms are not severe enough to warrant it. - Medication for postherpetic neuralgia may be restarted if the pain returns or worsens. - The patient was counseled to increase physical activity, including daily walking for 5-15 minutes, stretching, and using 5-pound weights. - Plan to follow up in six months. Discussion Notes I discussed the patient's ongoing postherpetic neuralgia, noting that trials of Neurontin and amitriptyline have not provided significant relief. We reviewed the option of a nerve block, which the pain clinic could evaluate, but I explained it would numb a larger area of the face, not just the affected spot. Since the patient's discomfort is manageable and not severely impacting quality of life, the patient has chosen to decline this procedure for now to avoid numbness of the lip. We agreed to discontinue both amitriptyline and gabapentin. I advised the patient on how to stop the gabapentin and we agreed to reconsider medications if the pain should worsen in the future. I also reviewed the patient's recent lab work from September 14, which was reassuringly normal. I counseled the patient on the importance of maintaining good health through regular, simple exercises such as daily walking, stretching, and using light weights, which can be done at home. A follow-up visit is scheduled in six months. Patient Instructions - You have stopped taking amitriptyline because it was not helping your nerve pain. - You can also stop taking gabapentin (Neurontin). - To do so, you can reduce your dose to twice a day, then once a day, and then stop it completely. - If your nerve pain gets worse, please contact the office, and we can discuss starting medication again. - To stay healthy, try to walk for 5 to 15 minutes each day. - Also, try doing daily stretching exercises and using light 5-pound weights for your arms. - Please schedule a follow-up appointment in about six months. Orders: Orders Influenza [id number] Immunization Today Z23 - Encounter for immunization Medications: New Fluarix [id number] (PF) (flu vac ts (6mos up)-PF) 0.5 mL IM ONCE 0.5 mL 0RF NS Z23 - Encounter for immunization Discontinued gabapentin (Neurontin) Discontinued Reason: Doctor's Order 300 mg PO TID 270 caps 3RF 90 days
[2025-10-12 08:22] VITALS: BP 137/62; PULSE 73; TEMP 36.5; O2SAT 97; BMI 25.1
== END 2025-10-12 08:55 | disposition home or self-care (01) ==
LOC: HO.HMCSH 08:07
PROVIDERS: PCP Internal Medicine; Visit Provider Internal Medicine
DX: Z23 Encounter for immunization (principal); B02.29 Other postherpetic nervous system involvement

== ENCOUNTER → 2025-10-12 08:07 | Outpatient (BNVA) | payer OTHER, SELFPAY | PROVIDERS: PCP Internal Medicine; Visit Provider Internal Medicine | DX: I10 Essential (primary) hypertension (principal); B02.29 Other postherpetic nervous system involvement; Z28.89 Immunization not carried out for other reason | CPT/HCPCS: 90471; 96127 ==